=== PATIENT | female | born 1990 | race Caucasian/White ===

== ENCOUNTER 2023-02-12 13:00 | Outpatient (CLI) | payer MEDICAID, SELFPAY | END 2023-02-12 13:01 | disposition home or self-care (01) | LOC: NFLDREF 13:02 | PROVIDERS: Visit Provider Physician Assistant | DX: N92.0 Excessive and frequent menstruation with regular cycle (principal) | CPT/HCPCS: 84443 ==

== ENCOUNTER 2023-02-15 14:45 | Outpatient (CLI) | payer MEDICAID, SELFPAY ==
--- NOTE | 2023-02-15 15:00 | CRLHL7_ITS ---
For Patients: As a result of the Century Cures Act, medical imaging exams and procedure reports are released immediately into your electronic medical record. You may view this report before your referring provider. If you have questions, please contact your health care provider. INDICATION: IRREGULAR Menstruation COMPARISON: none TECHNIQUE: 2D muñoz scale and color Doppler images were acquired of the pelvis using a transabdominal and transvaginal approach. FINDINGS: Sonographic images demonstrate a normal size and smooth outer contour of the uterus. Uterus measures 8.2 cm in length by 4.5 cm in AP diameter by 4.8 cm in transverse dimension. The myometrium has a normal uniform echotexture. The endometrial lining appears mildly heterogeneous and measures 9 mm in composite thickness. The right ovary measures 4.2 x 1.9 x 2.6 cm in size and the left ovary measures 3.2 x 2.3 x 2.4 cm. A complex right ovarian cyst is present with heterogeneous hypoechoic internal echotexture measuring 2.1 x 1.7 x 2.1 cm. The ovaries demonstrate normal arterial and venous blood flow on color Doppler analysis. Mild pelvic free fluid. IMPRESSION: Mild heterogeneity of the endometrium which measures 9 millimeters. No uterine fibroid. Complex right ovarian cyst measuring 2.1 cm, possibly a hemorrhagic cyst. Follow-up in 8-12 weeks recommended. Dictated by Charlie Zabala MD @ 02/18/2023 9:02:34 AM (Electronically Signed)
== END 2023-02-15 14:46 | disposition home or self-care (01) ==
LOC: US 14:45
PROVIDERS: Visit Provider Physician Assistant
DX: N92.6 Irregular menstruation, unspecified (principal); N83.201 Unspecified ovarian cyst, right side
CPT/HCPCS: 76830; 76856

== ENCOUNTER 2023-04-19 10:02 | Outpatient (CLI) | payer MEDICAID, SELFPAY ==
--- NOTE | 2023-04-19 10:15 | CRLHL7_ITS ---
For Patients: As a result of the Century Cures Act, medical imaging exams and procedure reports are released immediately into your electronic medical record. You may view this report before your referring provider. If you have questions, please contact your health care provider. INDICATION: Excessive and frequent menstruation COMPARISON: none TECHNIQUE: 2D muñoz scale and color Doppler images were acquired of the pelvis using a transabdominal and transvaginal approach. FINDINGS: Sonographic images demonstrate a normal size and smooth outer contour of the uterus. Uterus measures 9.5 cm in length by 4.3 cm in AP diameter by 5.4 cm in transverse dimension. The myometrium has a normal uniform echotexture. The endometrial lining measures 13 mm in composite thickness. The right ovary measures 3.2 x 1.5 x 1.9 cm in size and the left ovary measures 3.0 x 1.9 x 2.2 cm. The ovaries demonstrate normal arterial and venous blood flow on color Doppler analysis. There are no suspicious fluid collections within the cul-de-sac. IMPRESSION: Endometrial thickness 13 millimeters. No endometrial fluid. No uterine fibroid. Dictated by Charlie Zabala MD @ 04/19/2023 10:59:03 AM (Electronically Signed)
== END 2023-04-19 10:03 | disposition home or self-care (01) ==
LOC: US 10:02
PROVIDERS: Visit Provider Physician Assistant
DX: N92.0 Excessive and frequent menstruation with regular cycle (principal); R93.89 Abnormal findings on diagnostic imaging of other specified body structures
CPT/HCPCS: 76830; 76856

== ENCOUNTER 2023-08-20 09:12 | Outpatient (CLI) | payer MEDICAID, SELFPAY | END 2023-08-20 09:13 | disposition home or self-care (01) | PROVIDERS: PCP Family Medicine; Visit Provider Family Medicine | DX: E07.9 Disorder of thyroid, unspecified (principal); R63.8 Other symptoms and signs concerning food and fluid intake; Z13.228 Encounter for screening for other metabolic disorders | CPT/HCPCS: 80053; 84443; 86376 ==

== ENCOUNTER 2023-09-16 09:30 | Outpatient (RCR) | payer MEDICAID, SELFPAY | END 2023-12-20 12:19 | disposition home or self-care (01) | PROVIDERS: PCP Family Medicine; Visit Provider Family Medicine | DX: M54.17 Radiculopathy, lumbosacral region (principal); M54.50 Low back pain, unspecified; M62.81 Muscle weakness (generalized); M79.605 Pain in left leg; Z51.89 Encounter for other specified aftercare | CPT/HCPCS: 97110; 97161 ==

== ENCOUNTER 2024-01-03 08:49 | Outpatient (CLI) | payer MEDICAID, SELFPAY | END 2024-01-03 08:50 | disposition home or self-care (01) | LOC: FRMREF 08:50 | PROVIDERS: PCP Family Medicine; Visit Provider Family Medicine | DX: Z00.00 Encounter for general adult medical examination without abnormal findings (principal); R53.83 Other fatigue | CPT/HCPCS: 82306 ==

== ENCOUNTER 2025-06-07 15:21 | Outpatient (CLI) | payer MEDICAID, SELFPAY | END 2025-06-07 15:22 | disposition home or self-care (01) | PROVIDERS: PCP Family Medicine; Visit Provider Family Medicine | DX: Z00.00 Encounter for general adult medical examination without abnormal findings (principal); E66.01 Morbid (severe) obesity due to excess calories; Z68.31 Body mass index [BMI] 31.0-31.9, adult; Z86.39 Personal history of other endocrine, nutritional and metabolic disease | CPT/HCPCS: 80053; 80061; 84443 ==